=== PATIENT | female | born 1960 | race Two or more races ===

== ENCOUNTER 2025-07-07 13:08 | Emergency (ER) | payer OTHER ==
[~2025-07-07] VITALS: Ht 149.9 cm; Wt 63.5 kg
[2025-07-07 13:09] VITALS: BP 146/89; PULSE 83; RESP 15; TEMP 98.3; O2SAT 99
== END 2025-07-07 14:50 | disposition left against medical advice (07) ==
LOC: ER 13:08
DX: M54.50 Low back pain, unspecified (principal); M25.551 Pain in right hip; Z53.21 Procedure and treatment not carried out due to patient leaving prior to being seen by health care provider